=== PATIENT | male | born 1950 | race Caucasian/White ===

== ENCOUNTER 2019-07-25 10:30 | Outpatient (CLI) | payer MEDICARE ==
[~2019-07-25] VITALS: Ht 172.7 cm; Wt 76.8 kg
[2019-07-27] MEDS ORDERED: PANT40TA3 PO (12:48)
== END 2019-07-25 11:30 | disposition home or self-care (01) ==
LOC: PREOP 10:30
PROVIDERS: ATTEND Surgery
DX: Z01.818 Encounter for other preprocedural examination (principal)